=== PATIENT | female | born 1970 | race Caucasian/White ===

== ENCOUNTER 2018-05-25 14:52 | Emergency (ER) | payer SELFPAY ==
[2018-05-25 15:36] VITALS: BP 152/86
[2018-05-25] MEDS ORDERED: KETOROLAC TROMETHAMINE 60 MG/2 ML SDV IM ONE (16:52)
[2018-05-25] MEDS ORDERED: DICYCLOMINE HCL INJ 20 MG/2 ML AMPULE IM ONE (16:52)
--- NOTE | 2018-05-25 16:56 | ER Document Report ---
ED General - General Chief Complaint: Black/Tarry Stools Stated Complaint: BLACK TARRY STOOLS Time Seen by Provider: 05/25/18 16:52 Mode of Arrival: Ambulatory Information source: Patient Notes: Chief complaint: abdominal pain: History of complain:( obtained from----patient) 47 years old female presents today with nearly 2 month history of abdominal cramps with on and off slimy, tarry sometimes brownie watery stools sometimes the whole day leaking. Therefore present to the ED. She feels something sitting in the rectum but unable to pass. No fever chills nausea vomiting. Onset: As described above Duration: As above Severity: Mild to moderate Quality: Crampy Context: Poor bowel habit Exacerbating factor and relieving factors: None REVIEW OF SYSTEMS: CONSTITUTIONAL : Denies fever, chills, or sweats. Denies recent illness. EENT: Denies eye, ear, throat, or mouth pain or symptoms. Denies nasal or sinus congestion or discharge. Denies throat, tongue, or mouth swelling or difficulty swallowing. CARDIOVASCULAR: Denies chest pain. Denies palpitations or racing or irregular heart beat. Denies ankle edema. RESPIRATORY: Denies cough, cold, or chest congestion. Denies shortness of breath, difficulty breathing, or wheezing. GASTROINTESTINAL: Denies distention. Denies nausea, vomiting, or diarrhea. Denies blood in vomitus, stools, or per rectum. Denies black, tarry stools. Denies constipation. GENITOURINARY: Denies difficulty urinating, painful urination, burning, frequency, blood in urine, or discharge. FEMALE GENITOURINARY: Denies vaginal bleeding, heavy or abnormal periods, irregular periods. Denies vaginal discharge or odor. MUSCULOSKELETAL: Denies back or neck pain or stiffness. Denies joint pain or swelling. SKIN: Denies rash, lesions or sores. HEMATOLOGIC : Denies easy bruising or bleeding. LYMPHATIC: Denies swollen, enlarged glands. NEUROLOGICAL: Denies confusion or altered mental status. Denies passing out or loss of consciousness. Denies dizziness or lightheadedness. Denies headache. Denies weakness or paralysis or loss of use of either side. Denies problems with gait or speech. Denies sensory loss, numbness, or tingling. Denies seizures. PSYCHIATRIC: Denies anxiety or stress. Denies depression, suicidal ideation, or homicidal ideation. ALL OTHER SYSTEMS REVIEWED AND NEGATIVE. PHYSICAL EXAMINATION: GENERAL: Well-appearing, well-nourished and in no acute distress. HEAD: Atraumatic, normocephalic. EYES: Pupils equal round and reactive to light, extraocular movements intact, conjunctiva are normal. ENT: Nares patent, oropharynx clear without exudates. Moist mucous membranes. NECK: Normal range of motion, supple without lymphadenopathy LUNGS: Breath sounds clear to auscultation bilaterally and equal. No wheezes rales or rhonchi. HEART: Regular rate and rhythm without murmurs ABDOMEN: Soft, nontender, nondistended abdomen. No guarding, no rebound. No masses appreciated. Female : deferred Musculoskeletal: Normal range of motion, no pitting or edema. No cyanosis. NEUROLOGICAL: Cranial nerves grossly intact. Normal speech, normal gait. Normal sensory, motor exams PSYCH: Normal mood, normal affect. SKIN: Warm, Dry, normal turgor, no rashes or lesions noted. Dictation was performed using Drop[employer] recognition software - [facility] Notes: Dictated - Related Data Allergies/Adverse Reactions: No Known Allergies Allergy (Unverified 05/25/18 14:54) Past Medical History - Social History Smoking Status: Current Every Day Smoker Chew tobacco use (# tins/day): No Frequency of alcohol use: Rare Drug Abuse: None Family History: Reviewed & Not Pertinent Patient has suicidal ideation: No Patient has homicidal ideation: No Renal/ Medical History: Denies: Hx Peritoneal Dialysis Review of Systems - Review of Systems Notes: Dictated Physical Exam - Vital signs Vitals: Temp Pulse Resp BP Pulse Ox 98.2 F 97 20 152/86 H 100 05/25/18 15:14 05/25/18 15:14 05/25/18 15:14 05/25/18 15:14 05/25/18 15:14 - Notes Notes: Dictated Course - Re-evaluation Re-evalutation: 05/25/18 20:42 Patient fearing cost refused to have CAT scan of the abdomen done. Pros and cons was explained to her in detail that if there is any diverticulitis or diverticular abscess or tumors I1 not no without doing a scan. They understood they want to wait till July to get insurance. - Vital Signs Vital signs: Temp Pulse Resp BP Pulse Ox 98.2 F 97 20 152/86 H 100 05/25/18 15:14 05/25/18 15:14 05/25/18 15:14 05/25/18 15:14 05/25/18 15:14 - Laboratory Result Diagrams: 05/25/18 17:05 05/25/18 17:05 Laboratory results interpreted by me: 05/25/18 05/25/18 17:05 17:05 WBC 11.7 H Seg Neutrophils % 82.7 H Lymphocytes % 11.5 L Absolute Neutrophils 9.6 H Direct Bilirubin 0.5 H AST 47 H - Diagnostic Test Radiology reviewed: Image reviewed - KUB showed large amount of fecal material no air-fluid levels or distention of the bowel loop, Reports reviewed - Reported by radiologist as unremarkable Discharge - Discharge Clinical Impression: Chronic constipation Condition: Fair Disposition: HOME, SELF-CARE Instructions: Constipation ([facility]) Prescriptions: Lactulose [Cephulac Syrup 20 gm/30 ml Udcup] 20 gm PO BID #120 udc Referrals: ANGELITO HEARD MD [Primary Care Provider] - Follow up as needed
[2018-05-25 17:38] LABS: ABSOLUTE LYMPHOCYTES (AUTO) 1.3 10^3/uL (0.5-4.7); ABSOLUTE MONOCYTES (AUTO) 0.6 10^3/uL (0.1-1.4); ABSOLUTE NEUT (AUTO) 9.6 10^3/uL (1.7-8.2); BASOPHILS % (AUTO) 0.2 % (0-2); EOSINOPHILS % (AUTO) 0.2 % (0-6); HEMATOCRIT 39.5 % (36.0-47.0); HEMOGLOBIN 13.3 g/dL (12.0-15.5); LYMPHOCYTES % (AUTO) 11.5 % (13-45); MEAN CORPUSCULAR HEMOGLOBIN 30.7 pg (27.0-33.4); MEAN CORPUSCULAR HGB CONC 33.7 g/dL (32.0-36.0); MEAN CORPUSCULAR VOLUME 91 fl (80-97); MONOCYTES % (AUTO) 5.4 % (3-13); PLATELET COUNT 368 10^3/uL (150-450); RED BLOOD COUNT 4.33 10^6/uL (3.72-5.28); RED CELL DISTRIBUTION WIDTH 13.6 % (11.5-14.0); SEGMENTED NEUTROPHILS % (AUTO) 82.7 % (42-78); TOTAL CELLS COUNTED % (AUTO) 100 %; WHITE BLOOD COUNT 11.7 10^3/uL (4.0-10.5)
[2018-05-25 17:39] LABS: ALANINE AMINOTRANSFERASE 28 U/L (9-52); ALBUMIN 4.4 g/dL (3.5-5.0); ALKALINE PHOSPHATASE 88 U/L (38-126); ANION GAP 9 (5-19); ASPARTATE AMINO TRANSFERASE 47 U/L (14-36); BILIRUBIN,DIRECT 0.5 mg/dL (0.0-0.4); BILIRUBIN,TOTAL 0.6 mg/dL (0.2-1.3); BLOOD UREA NITROGEN 17 mg/dL (7-20); CARBON DIOXIDE 23 mmol/L (22-30); CHLORIDE 107 mmol/L (98-107); GLUCOSE 94 mg/dL (75-110); POTASSIUM 4.8 mmol/L (3.6-5.0); SODIUM 139.4 mmol/L (137-145); TOTAL PROTEIN 7.4 g/dL (6.3-8.2)
--- NOTE | 2018-05-25 17:45 | RADIOLOGY REPORT (SQ) ---
EXAM DESCRIPTION: KUB/ABDOMEN (SINGLE VIEW) COMPLETED DATE/TIME: 05/25/2018 5:35 pm REASON FOR STUDY: Abdominal pain COMPARISON: None. NUMBER OF VIEWS: One view. TECHNIQUE: Supine radiographic image of the abdomen acquired. LIMITATIONS: None. FINDINGS: BOWEL GAS PATTERN: Normal bowel gas pattern. No dilated loops. CALCIFICATIONS: No suspicious calcifications. SOFT TISSUES: No gross mass or suggestion of organomegaly. HARDWARE: None in the abdomen. BONES: No acute fracture. No worrisome bone lesions. OTHER: No other significant finding. IMPRESSION: NO RADIOGRAPHIC EVIDENCE FOR ACUTE ABDOMINAL DISEASE. TECHNICAL DOCUMENTATION: JOB ID: [id number] [employer]- All Rights Reserved Reading location - IP/workstation name: [email or web address]
== END 2018-05-25 20:43 | disposition home or self-care (01) ==
LOC: ER 14:52
DX: K59.00 Constipation, unspecified (principal); R19.5 Other fecal abnormalities; R10.9 Unspecified abdominal pain; F17.200 Nicotine dependence, unspecified, uncomplicated
CPT/HCPCS: 99285; 96372; 36415; 85025; 80053; 74018; J0500; J1885

== ENCOUNTER 2018-06-24 07:16 | Day surgery (SDC) | payer SELFPAY ==
[~2018-06-24 07:16] MED LIST: ACETAMINOPHEN 325 MG TABLET PO PRN; FENTANYL CITRATE INJ/PF 100 MCG/2 ML AMPUL ONE; MIDAZOLAM 2 MG/2 ML INJ ONE; PROPOFOL INJ 200 MG/20 ML VIAL IV ONE
[2018-06-24] MEDS ORDERED: BUPIVACAINE HCL 0.5 % INJ/PF 30 ML SDV ONE (07:22)
[2018-06-24] MEDS ORDERED: LIDOCAINE 1% INJ-PF (10 MG/ML) 30 ML SDV ONE (07:22)
[2018-06-24] MEDS ORDERED: CEFAZOLIN 2 GM/D5W RTU 2 GM/50 ML RTUPB IV ONE (07:25)
[2018-06-24 08:15] LABS: HEMATOCRIT 40.7 % (36.0-47.0); HEMOGLOBIN 13.9 g/dL (12.0-15.5); MEAN CORPUSCULAR HEMOGLOBIN 30.7 pg (27.0-33.4); MEAN CORPUSCULAR HGB CONC 34.2 g/dL (32.0-36.0); MEAN CORPUSCULAR VOLUME 90 fl (80-97); PLATELET COUNT 362 10^3/uL (150-450); RED BLOOD COUNT 4.54 10^6/uL (3.72-5.28); RED CELL DISTRIBUTION WIDTH 13.5 % (11.5-14.0); WHITE BLOOD COUNT 6.6 10^3/uL (4.0-10.5)
[2018-06-24] MEDS: CEFAZOLIN 2 GM/D5W RTU 2 GM/50 ML RTUPB IV PRN ×2 (08:38→08:55)
[2018-06-24] MEDS ORDERED: DIPHENHYDRAMINE HCL 50 MG/ML VIAL IV PRN (08:53)
[2018-06-24] MEDS ORDERED: MEPERIDINE HCL/PF INJ 25 MG/1 ML DISP.SYRIN IV PRN (08:53)
[2018-06-24] MEDS ORDERED: MORPHINE SULFATE 10 MG/ML INJ IV PRN (08:53)
[2018-06-24] MEDS ORDERED: PROMETHAZINE HCL INJ 25 MG/1 ML VIAL IV PRN ×2 (08:53)
[2018-06-24] MEDS ORDERED: OXYCODONE-ACETAMINOPHEN 5-325 MG TABLET PO PRN ×2 (08:53)
[2018-06-24] MEDS ORDERED: FENTANYL CITRATE INJ/PF 100 MCG/2 ML AMPUL IV PRN ×3 (08:53)
--- NOTE | 2018-06-24 09:44 | Discharge Summary ---
Discharge Summary (SDC) - Discharge Final Diagnosis: Anal cancer Date of Surgery: 06/24/18 Discharge Date: 06/24/18 Condition: Stable Treatment or Instructions: Discharge home. Diet as tolerated. Activity: Nonstrenuous. Okay to use Mediport. Follow-up with me in 2 weeks. Referrals: STACEY MINER NP [Primary Care Provider] - Discharge Diet: As Tolerated Respiratory Treatments at Home: Deep Breathing/Coughing, Incentive Spirometer Discharge Activity: Activity As Tolerated, Balance Activity w/Rest Home Care Assistance: None Needed Report the Following to Your Physician Immediately: Shortness of Breath, Nausea , Vomiting, Increase in Pain, Yellow Skin, Fever over 101 Degrees, Unusual Bleeding, Redness
--- NOTE | 2018-06-24 09:50 | Operative Report ---
Nonrecallable Operative Report DATE OF SURGERY: 06/24/18 PREOPERATIVE DIAGNOSIS: Anal cancer POSTOPERATIVE DIAGNOSIS: Anal cancer OPERATION: 1. Ultrasound-guided central venous puncture. 2. Left internal jugular vein Mediport placement. SURGEON: LARA DAVID ANESTHESIA: LMAC TISSUE REMOVED OR ALTERED: None COMPLICATIONS: None apparent ESTIMATED BLOOD LOSS: Minimal PROCEDURE: Drains/implants: Mediport to the left internal jugular vein. Procedure in detail: After informed consent was obtained, the patient was brought into the operating room and laid in the Trendelenburg position. The area of the neck and chest were prepped and draped in a normal sterile fashion. An ultrasound was used to identify the left internal jugular vein. It was compressible with normal flow. Under direct ultrasonic guidance, the left internal jugular vein was accessed using the supplied needle and syringe. Dark venous, nonpulsatile blood was returned in the syringe. The wire was inserted into the vein easily. The wire was confirmed to be within the lumen of the vein using fluoroscopy as well as ultrasonography. A separate incision was created in the left chest for the Mediport hub. The catheter was tunneled from the hub site to the needle insertion site. The dilator and breakaway sheath were inserted over the wire, under direct fluoroscopic guidance. The wire and dilator were removed, leaving the sheath within the SVC. Once this was completed, the catheter was inserted into the breakaway sheath. The sheath was cracked and pulled away, leaving the catheter within the SVC. The catheter was pulled back to an appropriate level in the SVC. It was trimmed to length. It was attached to the Mediport hub. The hub was buried in the left chest pocket and sutured to the chest wall using 3-0 Vicryl suture. The subcutaneous tissue was then closed using 3-0 Vicryl suture in simple running fashion. The overlying skin was closed using 4-0 Vicryl Rapide suture in subcuticular fashion. The hub was then accessed with the supplied Glaser needle. The port aspirated and flushed easily. A dressing was then placed, and the procedure was concluded. All sponge, instrument, and needle counts were correct x2. Condition: Stable.
--- NOTE | 2018-06-24 10:39 | RADIOLOGY REPORT (SQ) ---
EXAM DESCRIPTION: CHEST SINGLE VIEW COMPLETED DATE/TIME: 06/24/2018 10:19 am REASON FOR STUDY: Port a cath COMPARISON: None. EXAM PARAMETERS: NUMBER OF VIEWS: One view. TECHNIQUE: Single frontal radiographic view of the chest acquired. RADIATION DOSE: NA LIMITATIONS: None. FINDINGS: LUNGS AND PLEURA: No opacities, masses or pneumothorax. No pleural effusion. MEDIASTINUM AND HILAR STRUCTURES: No masses. Contour normal. HEART AND VASCULAR STRUCTURES: Heart normal in size. Normal vasculature. BONES: No acute findings. HARDWARE: None in the chest. OTHER: Left-sided port tip overlying SVC. IMPRESSION: Satisfactory left port position. No pneumothorax. TECHNICAL DOCUMENTATION: JOB ID: [id number] [employer]- All Rights Reserved Reading location - IP/workstation name: [email or web address]
[2018-06-24 14:32] VITALS: BP 161/96
--- NOTE | 2018-06-24 15:29 | RADIOLOGY REPORT (SQ) ---
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 FLUOROSCOPY TIME: 0.4 minutes 3 images saved to PACS. TECHNIQUE: Intra-operative images acquired during surgical procedure to evaluate progress. NUMBER OF IMAGES: 3 LIMITATIONS: None. FINDINGS: Selected images from left-sided port placement. Tip overlies SVC. IMPRESSION: IMAGE(S) OBTAINED DURING PROCEDURE. COMMENT: Quality ID [id number]: Final reports for procedures using fluoroscopy that document radiation exp osure indices, or exposure time and number of fluorographic images (if radiation exposure indices are not available) Please consult full operative report of the attending physician for description of the procedure. TECHNICAL DOCUMENTATION: JOB ID: [id number] [employer]- All Rights Reserved Reading location - IP/workstation name: [email or web address]
== END 2018-06-24 11:28 | disposition home or self-care (01) ==
LOC: OROUT 07:16
PROVIDERS: ATTEND Surgery
DX: C21.1 Malignant neoplasm of anal canal (principal); F41.9 Anxiety disorder, unspecified; I10 Essential (primary) hypertension; F17.210 Nicotine dependence, cigarettes, uncomplicated; Z79.899 Other long term (current) drug therapy
CPT/HCPCS: 36561; 36415; 85027; 81025; 71045; 77001; C1788; J2250; J3490 ×2; J3010; J2704; J0690; J1642; 532

== ENCOUNTER → 2018-06-25 | Outpatient (CLI) | payer SELFPAY ==
--- NOTE | 2018-06-25 13:36 | RADIOLOGY REPORT (SQ) ---
EXAM DESCRIPTION: NM MUGA REST COMPLETED DATE/TIME: 06/25/2018 1:00 pm REASON FOR STUDY: ENCOUNTER FOR SCREENING FOR CARDIOVASCULAR DISORDERS (Z13.6) C21.1 MALIGNANT NEOP LASM OF ANAL CANAL Z08 ENCNTR FOR FOLLOW-UP EXAM AFTER TRTMT FOR MALIGNANT NEOP Z13.6 ENCOUNTER FOR SCREENING FOR CARDIOVASCULAR DISORDERS COMPARISON: None. RADIONUCLIDE AND DOSE: 21.7 mCi technetium 99m labeled red blood cells The route of agent administration: Intravenous TECHNIQUE: Following administration of the radionuclide, gated images of the heart are obtained in t hree projections. Left ventricular functional analysis performed. LIMITATIONS: None. FINDINGS: LEFT VENTRICULAR FUNCTION: EJECTION FRACTION: 77%. END-DIASTOLIC VOLUME: 96 mL. END-SYSTOLIC VOLUME: 14 mL. WALL MOTION: No focal wall motion abnormalities. OTHER: No other significant finding. IMPRESSION: NORMAL CARDIAC MUGA STUDY. NORMAL LEFT VENTRICULAR FUNCTION WITH VALUES ABOVE. TECHNICAL DOCUMENTATION: JOB ID: [id number] [employer]- All Rights Reserved Reading location - IP/workstation name: [facility]
== END ==
LOC: RAD 10:40
PROVIDERS: ATTEND Internal Medicine
DX: Z08 Encounter for follow-up examination after completed treatment for malignant neoplasm (principal); C21.1 Malignant neoplasm of anal canal; Z13.6 Encounter for screening for cardiovascular disorders
CPT/HCPCS: 78472; A9560; Q9969

== ENCOUNTER → 2018-06-27 | Outpatient (CLI) | payer SELFPAY ==
--- NOTE | 2018-06-28 09:18 | RADIOLOGY REPORT (SQ) ---
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 RADIONUCLIDE AND DOSE: 10.81 mCi F18 FDG The route of agent administration: Intravenous FASTING BLOOD SUGAR: 90 mg/dl CONTRAST TYPE AND DOSE: No CT contrast given. TECHNIQUE: Blood glucose level was verified. Above dose of FDG was injected intravenously. 2-D seg mented attenuation correction images were obtained from the base of the skull to the midthighs. Nonc ontrast CT images were obtained for attenuation correction and fusion with emission images. CT image s were performed without oral or intravenous contrast and are not sensitive for parenchymal lesions. A series of overlapping emission PET images were obtained. Images reviewed and manipulated at [facility] work station by the radiologist. Images stored on PACS. LIMITATIONS: None. FINDINGS: HEAD AND NECK: No areas of abnormal metabolic activity in the soft tissues of the head and neck. CHEST: Left paratracheal brown fat uptake. No significant areas of abnormal metabolic activity in th e chest. ABDOMEN AND PELVIS: Increased uptake 8.0 SUV associated with known anal mass. No other significant u ptake. PROXIMAL LOWER EXTREMITIES: No areas of abnormal metabolic activity in the soft tissues of the lower extremities. BONES: No abnormal metabolic activity in the visualized skeleton. ADDITIONAL CT FINDINGS: Left-sided port tip in the SVC. OTHER: No other significant findings. IMPRESSION: No evidence of metastatic disease. TECHNICAL DOCUMENTATION: JOB ID: [id number] [employer] All Rights Reserved Reading location - IP/workstation name: [email or web address]
== END ==
LOC: RAD 16:04
PROVIDERS: ATTEND Internal Medicine
DX: C21.1 Malignant neoplasm of anal canal (principal)
CPT/HCPCS: 78815; A9552

== ENCOUNTER → 2018-06-29 | Outpatient (CLI) | payer SELFPAY | LOC: OD 12:53 | PROVIDERS: ATTEND Internal Medicine | DX: C21.1 Malignant neoplasm of anal canal (principal) | CPT/HCPCS: 36415; 86701 ==

== ENCOUNTER 2018-07-01 12:47 | Outpatient (CLI) | payer SELFPAY ==
[~2018-07-01 12:47] MED LIST changes: -ACETAMINOPHEN 325 MG TABLET PO PRN; +CYANOCOBALAMIN (VITAMIN B-12) INJ 1000 MCG/1 ML VIAL IM PRN; -FENTANYL CITRATE INJ/PF 100 MCG/2 ML AMPUL ONE; +FERRIC CARBOXYMALTOSE 750 MG in NORMAL SALINE 250 ML IV PRN; -MIDAZOLAM 2 MG/2 ML INJ ONE; +NORMAL SALINE 250 ML IV PRN; -PROPOFOL INJ 200 MG/20 ML VIAL IV ONE
[2018-07-01 13:20] VITALS: BP 136/86
== END 2018-07-01 14:16 | disposition home or self-care (01) ==
LOC: II 12:47 → 5TH 13:29 → II 14:16
PROVIDERS: ATTEND Internal Medicine
PROC: 3E043GC Introduction of Other Therapeutic Substance into Central Vein, Percutaneous Approach (ICD-10-PCS; principal; 2018-07-01)
PROC: 3E023GC Introduction of Other Therapeutic Substance into Muscle, Percutaneous Approach (ICD-10-PCS; 2018-07-01)
DX: D50.8 Other iron deficiency anemias (principal); K90.9 Intestinal malabsorption, unspecified; E53.8 Deficiency of other specified B group vitamins
CPT/HCPCS: 96367; 96372; J3420; J7050; J1439; 96365

== ENCOUNTER 2018-07-06 07:46 | Outpatient (CLI) | payer SELFPAY ==
[~2018-07-06 07:46] MED LIST changes: +CISPLATIN 86 MG in NORMAL SALINE 500 ML IV PRN; +CONTAINER EMPTY IV PRN; -CYANOCOBALAMIN (VITAMIN B-12) INJ 1000 MCG/1 ML VIAL IM PRN; -FERRIC CARBOXYMALTOSE 750 MG in NORMAL SALINE 250 ML IV PRN; +FLUOROURACIL IV PRN; +FOSAPREPITANT DIMEGLUMINE 150 MG in NORMAL SALINE 150 ML IV PRN; +FUROSEMIDE INJ/PF 20 MG/2 ML SDV IV PRN; +NORMAL SALINE 1000 ML 1,000 ML IV PRN; -NORMAL SALINE 250 ML IV PRN; +ONDANSETRON HCL/PF 16 MG, DEXAMETHASONE SOD PHOSPHATE 10 MG in NORMAL SALINE 50 ML IV PRN
[2018-07-06] MEDS ORDERED: EPINEPHRINE INJ 1 MG/10 ML DISP.SYRIN ONE (08:41)
[2018-07-06] MEDS ORDERED: DIPHENHYDRAMINE HCL 50 MG/ML VIAL ONE (08:41)
[2018-07-06 09:21] VITALS: BP 127/79
== END 2018-07-06 13:30 | disposition home or self-care (01) ==
LOC: 5TH 07:46 → II 07:46
PROVIDERS: ATTEND Internal Medicine
PROC: 3E04305 Introduction of Other Antineoplastic into Central Vein, Percutaneous Approach (ICD-10-PCS; principal; 2018-07-06)
PROC: 3E0433Z Introduction of Anti-inflammatory into Central Vein, Percutaneous Approach (ICD-10-PCS; 2018-07-06)
PROC: 3E043GC Introduction of Other Therapeutic Substance into Central Vein, Percutaneous Approach (ICD-10-PCS; 2018-07-06)
PROC: 3E02340 Introduction of Influenza Vaccine into Muscle, Percutaneous Approach (ICD-10-PCS; 2018-07-06)
DX: Z51.11 Encounter for antineoplastic chemotherapy (principal); C21.1 Malignant neoplasm of anal canal; Z23 Encounter for immunization
CPT/HCPCS: 90686; 96411; 96413; 96415; 96367; 96375; 96361; J9060; J3490; J9190; J1940; J2405; J7040; J1100; J1453; 90471; 96360; 96372; 96374; 96417; G0008; J0171; J1200

== ENCOUNTER 2018-07-09 10:51 | Outpatient (CLI) | payer SELFPAY ==
[~2018-07-09 10:51] MED LIST changes: -CISPLATIN 86 MG in NORMAL SALINE 500 ML IV PRN; -CONTAINER EMPTY IV PRN; +FERRIC CARBOXYMALTOSE 750 MG in NORMAL SALINE 250 ML IV PRN; -FLUOROURACIL IV PRN; -FOSAPREPITANT DIMEGLUMINE 150 MG in NORMAL SALINE 150 ML IV PRN; -FUROSEMIDE INJ/PF 20 MG/2 ML SDV IV PRN; -NORMAL SALINE 1000 ML 1,000 ML IV PRN; +NORMAL SALINE 250 ML IV PRN; -ONDANSETRON HCL/PF 16 MG, DEXAMETHASONE SOD PHOSPHATE 10 MG in NORMAL SALINE 50 ML IV PRN
[2018-07-09 14:12] VITALS: BP 154/77
== END 2018-07-09 13:00 | disposition home or self-care (01) ==
LOC: II 10:51 → 5TH 10:52 → II 13:00
PROVIDERS: ATTEND Internal Medicine
PROC: 3E043GC Introduction of Other Therapeutic Substance into Central Vein, Percutaneous Approach (ICD-10-PCS; principal; 2018-07-09)
DX: D50.8 Other iron deficiency anemias (principal); K90.9 Intestinal malabsorption, unspecified; E53.8 Deficiency of other specified B group vitamins
CPT/HCPCS: J7050; J1439; 96365; 96366

== ENCOUNTER 2018-07-20 07:46 | Outpatient (CLI) | payer SELFPAY ==
[~2018-07-20 07:46] MED LIST changes: -FERRIC CARBOXYMALTOSE 750 MG in NORMAL SALINE 250 ML IV PRN; +FERUMOXYTOL (NON-ESRD) 510 MG/NS 100 ML IV PRN
[2018-07-20 08:40] VITALS: BP 126/73
[2018-07-20 08:53] LABS: ABSOLUTE LYMPHOCYTES (AUTO) 1.3 10^3/uL (0.5-4.7); ABSOLUTE MONOCYTES (AUTO) 0.5 10^3/uL (0.1-1.4); ABSOLUTE NEUT (AUTO) 4.6 10^3/uL (1.7-8.2); BASOPHILS % (AUTO) 0.5 % (0-2); EOSINOPHILS % (AUTO) 0.3 % (0-6); HEMOGLOBIN 13.2 g/dL (12.0-15.5); LYMPHOCYTES % (AUTO) 19.7 % (13-45); MEAN CORPUSCULAR HEMOGLOBIN 31.8 pg (27.0-33.4); MEAN CORPUSCULAR HGB CONC 34.6 g/dL (32.0-36.0); MEAN CORPUSCULAR VOLUME 92 fl (80-97); MONOCYTES % (AUTO) 7.5 % (3-13); PLATELET COUNT 297 10^3/uL (150-450); RED BLOOD COUNT 4.14 10^6/uL (3.72-5.28); TOTAL CELLS COUNTED % (AUTO) 100 %; WHITE BLOOD COUNT 6.4 10^3/uL (4.0-10.5)
== END 2018-07-20 09:02 | disposition home or self-care (01) ==
LOC: II 07:46 → 5TH 08:20 → II 09:02
PROVIDERS: ATTEND Internal Medicine
PROC: 3E033GC Introduction of Other Therapeutic Substance into Peripheral Vein, Percutaneous Approach (ICD-10-PCS; principal; 2018-07-20)
DX: D50.8 Other iron deficiency anemias (principal); K90.9 Intestinal malabsorption, unspecified
CPT/HCPCS: 36415; 85025; 96365; 96374; Q0138

== ENCOUNTER 2018-07-27 08:44 | Outpatient (CLI) | payer SELFPAY ==
[~2018-07-27 08:44] MED LIST changes: +CISPLATIN 85 MG in NORMAL SALINE 500 ML IV PRN; +CISPLATIN 86 MG in NORMAL SALINE 500 ML IV PRN; +CONTAINER EMPTY IV PRN; +FLUOROURACIL IV PRN; +FOSAPREPITANT DIMEGLUMINE 150 MG in NORMAL SALINE 150 ML IV PRN; +FUROSEMIDE INJ/PF 20 MG/2 ML SDV IV PRN; +NORMAL SALINE 1000 ML 1,000 ML IV PRN; +ONDANSETRON HCL/PF 16 MG, DEXAMETHASONE SOD PHOSPHATE 10 MG in NORMAL SALINE 50 ML IV PRN
[2018-07-27 10:28] VITALS: BP 128/76
== END 2018-07-27 14:15 | disposition home or self-care (01) ==
LOC: II 08:44 → 5TH 08:48 → II 14:15
PROVIDERS: ATTEND Internal Medicine
PROC: 3E04305 Introduction of Other Antineoplastic into Central Vein, Percutaneous Approach (ICD-10-PCS; principal; 2018-07-27)
PROC: 3E043GC Introduction of Other Therapeutic Substance into Central Vein, Percutaneous Approach (ICD-10-PCS; 2018-07-27)
DX: Z51.11 Encounter for antineoplastic chemotherapy (principal); C21.1 Malignant neoplasm of anal canal; D50.8 Other iron deficiency anemias; K90.9 Intestinal malabsorption, unspecified
CPT/HCPCS: 96413; 96415; 96416; 96367; 96375; 96360; 96361; Q0138; J9060; J3490; J9190; J1940; J2405; J7040; J1100; J1453

== ENCOUNTER 2018-07-30 11:19 | Outpatient (CLI) | payer SELFPAY | END 2018-07-30 11:58 | disposition home or self-care (01) | LOC: II 11:19 → 5TH 11:19 → II 11:58 | PROVIDERS: ATTEND Internal Medicine | DX: Z51.11 Encounter for antineoplastic chemotherapy (principal); C21.1 Malignant neoplasm of anal canal ==

== ENCOUNTER → 2018-08-06 | Outpatient (CLI) | payer SELFPAY ==
[2018-08-06 14:41] LABS: ABSOLUTE LYMPHOCYTES (AUTO) 1.7 10^3/uL (0.5-4.7); ABSOLUTE MONOCYTES (AUTO) 0.5 10^3/uL (0.1-1.4); ABSOLUTE NEUT (AUTO) 6.1 10^3/uL (1.7-8.2); BASOPHILS % (AUTO) 0.2 % (0-2); EOSINOPHILS % (AUTO) 0.1 % (0-6); HEMATOCRIT 36.7 % (36.0-47.0); HEMOGLOBIN 12.9 g/dL (12.0-15.5); LYMPHOCYTES % (AUTO) 20.2 % (13-45); MEAN CORPUSCULAR HEMOGLOBIN 32.4 pg (27.0-33.4); MEAN CORPUSCULAR HGB CONC 35.2 g/dL (32.0-36.0); MEAN CORPUSCULAR VOLUME 92 fl (80-97); MONOCYTES % (AUTO) 5.6 % (3-13); PLATELET COUNT 355 10^3/uL (150-450); RED BLOOD COUNT 3.99 10^6/uL (3.72-5.28); RED CELL DISTRIBUTION WIDTH 14.1 % (11.5-14.0); SEGMENTED NEUTROPHILS % (AUTO) 73.9 % (42-78); TOTAL CELLS COUNTED % (AUTO) 100 %; WHITE BLOOD COUNT 8.2 10^3/uL (4.0-10.5)
[2018-08-06 14:52] LABS: BLOOD UREA NITROGEN 5 mg/dL (7-20)
== END ==
LOC: OD 13:53
PROVIDERS: ATTEND Radiology Radiation Oncology
DX: C20 Malignant neoplasm of rectum (principal)
CPT/HCPCS: 36415; 82565; 84520; 84702; 85025

== ENCOUNTER → 2018-08-06 | Outpatient (CLI) | payer SELFPAY ==
--- NOTE | 2018-08-06 14:47 | RADIOLOGY REPORT (SQ) ---
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 Images reviewed with lung, soft tissue and bone windows. Reconstructed coronal a nd sagittal MPR images reviewed. All images stored on PACS. CT scan of the abdomen and pelvis performed with intravenous and with oral contrastusing helical scan shanti technique with dynamic intravenous contrast injection. Images reviewed with lung, soft tissue a nd bone windows. Reconstructed coronal and sagittal MPR images reviewed. Delayed images for evaluat ion of the urinary system also acquired and evaluated. All images stored on PACS. All CT scanners at this facility use dose modulation, iterative reconstruction, and/or weight based d osing when appropriate to reduce radiation dose to as low as reasonably achievable (ALARA). [facility]: Dose Right [facility]: CareDose [facility]: Dose Right [facility]: Teradose 4D [facility]: [employer] RADIATION DOSE: CT Rad equipment meets quality standard of care and radiation dose reduction techniq ues were employed. CTDIvol: 4.7 - 5.1 mGy. DLP: 726 mGy-cm. . LIMITATIONS: None. FINDINGS: CHEST: LUNGS AND PLEURA: No opacities, nodules, masses. No pneumothorax. No effusions. HILAR AND MEDIASTINAL STRUCTURES: No identified masses or abnormal nodes. HEART AND VASCULAR STRUCTURES: No aneurysm or dissection. No central pulmonary emboli. No pericardi al effusion. HARDWARE: Left permanent central line tip superior vena cava THYROID AND OTHER SOFT TISSUES: No masses. No adenopathy. BONES: No significant finding. OTHER: No other significant finding. ABDOMEN AND PELVIS: LIVER: Normal size. No masses. No dilated ducts. 1 cm benign cyst sub- diaphragmatic surface left l obe liver, 5 mm cyst inferior right lobe liver SPLEEN: Normal size. No focal lesions. PANCREAS: No masses. No significant calcifications. No adjacent inflammation or peripancreatic fluid collections. Pancreatic duct not dilated. GALLBLADDER: No identified stones by CT criteria. No inflammatory changes to suggest cholecystitis. ADRENAL GLANDS: No significant masses or asymmetry. RIGHT KIDNEY AND URETER: No solid masses. No significant calcification. No hydronephrosis or hydroure ter. LEFT KIDNEY AND URETER: No solid masses. No significant calcification. No hydronephrosis or hydrouret er. AORTA AND VESSELS: No aneurysm. No dissection. Renal arteries, SMA, celiac without stenosis. RETROPERITONEUM: No retroperitoneal adenopathy, hemorrhage or masses. BOWEL AND PERITONEAL CAVITY: Patient drank oral contrast. No CT evidence of bowel obstruction few co lonic diverticuli without CT signs of acute diverticulitis. APPENDIX: Normal. ABDOMINAL WALL: No masses. No hernias. 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 Immediately do rsal to the anus and rectum, there is extraluminal air in the pelvic soft tissues with surrounding in flammatory change, extending into the ischiorectal fossa fat and presacral fat. This area of involve ment measures about 5 cm AP by 2 cm transverse by 5 cm craniocaudad. These changes are best shown on axial images 82-89, coronal images 62-69, and sagittal images 36 through 46. Suspect perforation of the anal malignancy and infectious/inflammatory phlegmon in the fat dorsal to the anus. Rectum, sigmoid, uterus, ovaries unremarkable. No pelvic adenopathy. BONES: No significant or acute findings. OTHER: No other significant finding. IMPRESSION: No CT evidence of metastatic disease to the chest abdomen or pelvis Abnormal extraluminal air bubbles with phlegmon/inflammation in the fat planes just dorsal to the cam s and distal rectum. Findings are worrisome for perforation of the anal cancer with adjacent infecti on/inflammation. TECHNICAL DOCUMENTATION: JOB ID: [id number] Quality ID # [id number]: Final reports with documentation of one or more dose reduction techniques (e.g., Au tomated exposure control, adjustment of the mA and/or kV according to patient size, use of iterative reconstruction technique) 2010 [employer]- All Rights Reserved Reading location - IP/workstation name: [email or web address]
== END ==
LOC: RAD 12:49
PROVIDERS: ATTEND Internal Medicine
DX: C21.1 Malignant neoplasm of anal canal (principal)
CPT/HCPCS: 71260; 74177

== ENCOUNTER 2018-08-24 08:35 | Outpatient (CLI) | payer SELFPAY ==
[~2018-08-24 08:35] MED LIST changes: -CISPLATIN 85 MG in NORMAL SALINE 500 ML IV PRN; -CISPLATIN 86 MG in NORMAL SALINE 500 ML IV PRN; -FERUMOXYTOL (NON-ESRD) 510 MG/NS 100 ML IV PRN; -FOSAPREPITANT DIMEGLUMINE 150 MG in NORMAL SALINE 150 ML IV PRN; -FUROSEMIDE INJ/PF 20 MG/2 ML SDV IV PRN; +MITOMYCIN IV PRN; -NORMAL SALINE 1000 ML 1,000 ML IV PRN; +NORMAL SALINE IV PRN
[2018-08-24 10:30] VITALS: BP 111/66
== END 2018-08-24 10:38 | disposition home or self-care (01) ==
LOC: II 08:35 → 5TH 08:38 → II 10:38
PROVIDERS: ATTEND Internal Medicine
PROC: 3E04305 Introduction of Other Antineoplastic into Central Vein, Percutaneous Approach (ICD-10-PCS; principal; 2018-08-24)
PROC: 3E043GC Introduction of Other Therapeutic Substance into Central Vein, Percutaneous Approach (ICD-10-PCS; 2018-08-24)
DX: Z51.11 Encounter for antineoplastic chemotherapy (principal); C21.1 Malignant neoplasm of anal canal
CPT/HCPCS: 96413; 96415; 96367; 96374; 96360; 96417; A4222; J3490; J9190; J9280; J2405; J1100; 96416

== ENCOUNTER 2018-09-01 10:11 | Outpatient (CLI) | payer SELFPAY ==
[2018-09-01] MEDS ORDERED: CONTAINER EMPTY IV PRN ×3 (10:46→10:53)
[2018-09-01] MEDS ORDERED: FLUOROURACIL IV PRN ×3 (10:46→10:53)
[2018-09-01 11:24] VITALS: BP 123/78
[2018-09-01 13:25] LABS: ALANINE AMINOTRANSFERASE 13 U/L (9-52); ALBUMIN 3.5 g/dL (3.5-5.0); ALKALINE PHOSPHATASE 85 U/L (38-126); ANION GAP 5 (5-19); ASPARTATE AMINO TRANSFERASE 28 U/L (14-36); BILIRUBIN,DIRECT 0.2 mg/dL (0.0-0.4); BILIRUBIN,TOTAL 0.3 mg/dL (0.2-1.3); BLOOD UREA NITROGEN 9 mg/dL (7-20); CALCIUM 9.3 mg/dL (8.4-10.2); CARBON DIOXIDE 24 mmol/L (22-30); CHLORIDE 110 mmol/L (98-107); GLUCOSE 86 mg/dL (75-110); SODIUM 139.1 mmol/L (137-145); TOTAL PROTEIN 6.1 g/dL (6.3-8.2)
== END 2018-09-01 13:51 | disposition home or self-care (01) ==
LOC: II 10:11 → 5TH 10:16 → II 13:51
PROVIDERS: ATTEND Internal Medicine
DX: Z51.11 Encounter for antineoplastic chemotherapy (principal); C21.1 Malignant neoplasm of anal canal
CPT/HCPCS: 36415; 80053; 96416; A4222; J3490; J9190

== ENCOUNTER 2018-09-08 09:11 | Outpatient (CLI) | payer BC ==
[~2018-09-08 09:11] MED LIST changes: -MITOMYCIN IV PRN; -NORMAL SALINE 250 ML IV PRN; -NORMAL SALINE IV PRN; -ONDANSETRON HCL/PF 16 MG, DEXAMETHASONE SOD PHOSPHATE 10 MG in NORMAL SALINE 50 ML IV PRN
[2018-09-08 09:40] VITALS: BP 126/74
== END 2018-09-08 11:38 | disposition home or self-care (01) ==
LOC: II 09:11 → 5TH 09:12 → II 11:38
PROVIDERS: ATTEND Internal Medicine
DX: Z51.11 Encounter for antineoplastic chemotherapy (principal); C21.1 Malignant neoplasm of anal canal
CPT/HCPCS: 96416; J3490; J9190

== ENCOUNTER 2018-09-14 11:50 | Outpatient (CLI) | payer BC ==
[2018-09-14] MEDS ORDERED: CONTAINER EMPTY IV PRN (12:21)
[2018-09-14] MEDS ORDERED: FLUOROURACIL IV PRN (12:21)
[2018-09-14 12:32] VITALS: BP 112/68
== END 2018-09-14 14:30 | disposition home or self-care (01) ==
LOC: II 11:50 → 5TH 12:26 → II 14:30
PROVIDERS: ATTEND Internal Medicine
DX: Z51.11 Encounter for antineoplastic chemotherapy (principal); C21.1 Malignant neoplasm of anal canal
CPT/HCPCS: 96416; A4222; J3490; J9190

== ENCOUNTER 2018-09-22 08:01 | Outpatient (CLI) | payer BC ==
[2018-09-22 08:36] VITALS: BP 129/75
== END 2018-09-22 10:10 | disposition home or self-care (01) ==
LOC: II 08:01 → 5TH 08:07 → II 10:10
PROVIDERS: ATTEND Internal Medicine
DX: Z51.11 Encounter for antineoplastic chemotherapy (principal); C21.1 Malignant neoplasm of anal canal
CPT/HCPCS: 96416; A4222; J3490; J9190

== ENCOUNTER 2018-09-28 08:37 | Outpatient (CLI) | payer BC ==
[2018-09-28 09:37] VITALS: BP 123/73
== END 2018-09-28 12:03 | disposition home or self-care (01) ==
LOC: II 08:37 → 5TH 08:45 → II 12:03
PROVIDERS: ATTEND Internal Medicine
DX: Z51.11 Encounter for antineoplastic chemotherapy (principal); C21.1 Malignant neoplasm of anal canal
CPT/HCPCS: 96416; J3490; J9190

== ENCOUNTER 2018-10-05 08:35 | Outpatient (CLI) | payer BC ==
[2018-10-05 09:27] VITALS: BP 125/76
== END 2018-10-05 11:10 | disposition home or self-care (01) ==
LOC: II 08:35 → 5TH 08:35 → II 11:10
PROVIDERS: ATTEND Internal Medicine
DX: Z51.11 Encounter for antineoplastic chemotherapy (principal); C21.1 Malignant neoplasm of anal canal
CPT/HCPCS: 96416; A4222; J3490; J9190

== ENCOUNTER → 2019-04-18 | Outpatient (CLI) | payer BC ==
--- NOTE | 2019-04-18 11:13 | RADIOLOGY REPORT (SQ) ---
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 TECHNIQUE: CT scan of the chest performed using helical scanning technique with dynamic intravenous contrast injection. Images reviewed with lung, soft tissue and bone windows. Reconstructed coronal and sagittal MPR and MIP images reviewed. All images stored on PACS. All CT scanners at this facility use dose modulation, iterative reconstruction, and/or weight based d osing when appropriate to reduce radiation dose to as low as reasonably achievable (ALARA). [facility]: Dose Right [facility]: CareDose [facility]: Dose Right [facility]: Teradose 4D [facility]: [place] CONTRAST TYPE AND DOSE: 73 mL Omnipaque 350- low osmolar. RENAL FUNCTION: Creatinine 0.6 RADIATION DOSE: CT Rad equipment meets quality standard of care and radiation dose reduction techniq ues were employed. CTDIvol: 4.5 - 5.1 mGy. DLP: 698 mGy-cm. . LIMITATIONS: None. FINDINGS: LUNGS AND PLEURA: No opacities, nodules, masses. No pneumothorax. No effusions. HILAR AND MEDIASTINAL STRUCTURES: No identified masses or abnormal nodes. HEART AND VASCULAR STRUCTURES: No aneurysm or dissection. No central pulmonary emboli. No pericardi al effusion. HARDWARE: Injection port UPPER ABDOMEN: See separate report of the CT of the abdomen. THYROID AND OTHER SOFT TISSUES: No masses. No adenopathy. BONES: No significant finding. OTHER: No other significant finding. IMPRESSION: There is no evidence of thoracic metastases. No acute findings in the chest. TECHNICAL DOCUMENTATION: JOB ID: [id number] Quality ID # [id number]: Final reports with documentation of one or more dose reduction techniques (e.g., Au tomated exposure control, adjustment of the mA and/or kV according to patient size, use of iterative reconstruction technique) 2010 [employer]- All Rights Reserved Reading location - IP/workstation name: [email or web address]
--- NOTE | 2019-04-18 11:50 | RADIOLOGY REPORT (SQ) ---
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 Oral contrast. Images reviewed with lung, soft tissue, and bone win dows. Reconstructed coronal and sagittal MPR images reviewed. Delayed images for evaluation of the ur inary system also acquired. All images stored on PACS. All CT scanners at this facility use dose modulation, iterative reconstruction, and/or weight based d osing when appropriate to reduce radiation dose to as low as reasonably achievable (ALARA). [facility]: Dose Right [facility]: CareDose [facility]: Dose Right [facility]: Teradose 4D [facility]: [employer] CONTRAST TYPE AND DOSE: contrast/concentration: Isovue 350.00 mg/ml; Total Contrast Delivered: 73.0 ml; Total Saline Delivered: 66.0 ml RENAL FUNCTION: Creatinine 0.6 RADIATION DOSE: . LIMITATIONS: None. FINDINGS: LOWER CHEST: See separate report of the CT of the chest. LIVER: There are 3 contiguous small cystic lesions in the dome of the liver, unchanged. No hepatic m ass is seen. SPLEEN: Normal size. No focal lesions. PANCREAS: No masses. No significant calcifications. No adjacent inflammation or peripancreatic fluid collections. Pancreatic duct not dilated. GALLBLADDER: No identified stones by CT criteria. No inflammatory changes to suggest cholecystitis. ADRENAL GLANDS: No significant masses or asymmetry. RIGHT KIDNEY AND URETER: No solid masses. No significant calcifications. No hydronephrosis or hyd roureter. LEFT KIDNEY AND URETER: No solid masses. No significant calcifications. No hydronephrosis or hydr oureter. AORTA AND VESSELS: No aneurysm. No dissection. Renal arteries, SMA, celiac without stenosis. RETROPERITONEUM: No retroperitoneal adenopathy, hemorrhage or masses. BOWEL AND PERITONEAL CAVITY: A moderate sigmoid diverticulosis with no acute inflammation. Cannot ex clude a polypoid lesion at the rectosigmoid junction on the left. See images 69 and 68. APPENDIX: Normal. PELVIS: No mass. No free fluid. Normal bladder. ABDOMINAL WALL: No masses. No hernias. BONES: No significant or acute findings. OTHER: No other significant finding. IMPRESSION: Sigmoid diverticulosis. Cannot exclude a polypoid lesion at the rectosigmoid junction. TECHNICAL DOCUMENTATION: JOB ID: [id number] Quality ID # [id number]: Final reports with documentation of one or more dose reduction techniques (e.g., Au tomated exposure control, adjustment of the mA and/or kV according to patient size, use of iterative reconstruction technique) 2010 [employer]- All Rights Reserved Reading location - IP/workstation name: [email or web address]
== END ==
LOC: RAD 07:34
PROVIDERS: ATTEND Internal Medicine
DX: C21.1 Malignant neoplasm of anal canal (principal); K57.30 Diverticulosis of large intestine without perforation or abscess without bleeding
CPT/HCPCS: 71260; 74177; 82565

== ENCOUNTER 2019-05-10 07:04 | Day surgery (SDC) | payer BC ==
[~2019-05-10 07:04] MED LIST changes: -CONTAINER EMPTY IV PRN; -FLUOROURACIL IV PRN; +LACTATED RINGERS 1000 ML IV PRN
[2019-05-10] MEDS ORDERED: PROPOFOL INJ 200 MG/20 ML VIAL IV ONE (07:37)
--- NOTE | 2019-05-10 09:50 | Discharge Summary ---
Discharge Summary (SDC) - Discharge Final Diagnosis: h/o anal cancer, no sign of sigmoid mass, diverticulosis. Date of Surgery: 05/10/19 Discharge Date: 05/10/19 Condition: Stable Forms: ASU Anesthesia D/C Instruction, Discharge POC-Surgical Service Treatment or Instructions: Discharge home. Diet as tolerated. Activity: Nonstrenuous. Follow-up with me in 2 weeks. Referrals: LARA DAVID MD [ACTIVE STAFF] - 05/24/19 1:15 pm Discharge Diet: As Tolerated Respiratory Treatments at Home: Deep Breathing/Coughing, Incentive Spirometer Discharge Activity: Balance Activity w/Rest Home Care Assistance: None Needed Report the Following to Your Physician Immediately: Shortness of Breath, Nausea, Vomiting, Increase in Pain, Fever over 101 Degrees, Unusual Bleeding, Redness
--- NOTE | 2019-05-10 10:02 | Operative Report ---
Nonrecallable Operative Report DATE OF SURGERY: 05/10/19 PREOPERATIVE DIAGNOSIS: 1. History of anal cancer. 2. Questionable sigmoid lesion seen on CT scan. POSTOPERATIVE DIAGNOSIS: 1. & 2. the same. 3. No evidence of sigmoid intraluminal masses. 4. Diverticulosis, scattered throughout the colon. 5. Scarring at the anorectal ring, without obvious mass lesion. OPERATION: 1. Colonoscopy to the cecum. 2. Cold biopsy, circumferential at the anorectal ring. SURGEON: LARA DAVID ANESTHESIA: LMAC TISSUE REMOVED OR ALTERED: Cold biopsy at the anorectal ring, multiple COMPLICATIONS: None apparent ESTIMATED BLOOD LOSS: Minimal PROCEDURE: Procedure in detail: After informed consent was obtained, the patient was brought to the operating room and laid in the left lateral decubitus position. The endoscope was inserted into the rectum. It was passed up the rectum, sigmoid colon, descending colon, across the transverse colon, down the ascending colon, and into the cecum. The ileocecal valve and appendiceal orifice were identified. The scope was then withdrawn, circumferentially noting the mucosa. The prep was good. The scope was pulled back past the ascending colon, transverse colon, descending colon, sigmoid colon, and into the rectum. No masses, lesions, ulcerations, or bleeding could be noted throughout the colon. There were small, scattered diverticula throughout the length of the colon. There is no sign of active inflammation or diverticulitis. Specifically, there is no mass lesion seen intraluminally within the sigmoid colon (as had been suggested on CT scan). Once the anorectal ring was reached, multiple biopsies were taken at the anorectal ring, circumferentially. There was evidence of mild to moderate stricture in this area, however there was no mass lesion. The scope was then at this time removed, and the procedure was concluded. All sponge, instrument, and needle counts were correct x2. Condition: Stable.
[2019-05-10 13:45] VITALS: BP 136/76
== END 2019-05-10 11:00 | disposition home or self-care (01) ==
LOC: OROUT 07:04
PROVIDERS: ATTEND Surgery
DX: C21.0 Malignant neoplasm of anus, unspecified (principal); K63.5 Polyp of colon; K57.30 Diverticulosis of large intestine without perforation or abscess without bleeding; I10 Essential (primary) hypertension; F17.210 Nicotine dependence, cigarettes, uncomplicated; Z79.899 Other long term (current) drug therapy
CPT/HCPCS: 45380; 81025; 88305 ×2; 00811; J2704; 811

== ENCOUNTER → 2019-07-19 | Outpatient (CLI) | payer BC ==
--- NOTE | 2019-07-19 09:26 | RADIOLOGY REPORT (SQ) ---
EXAM DESCRIPTION: CT CHEST WITH; CT ABD/PELVIS WITH IV ORAL COMPLETED DATE/TIME: 07/19/2019 9:00 am REASON FOR STUDY: MALIGNANT NEOPLASM OF ANAL CANAL C21.1 MALIGNANT NEOPLASM OF ANAL CANAL CONTRAST TYPE AND DOSE: contrast/concentration: Isovue 350.00 mg/ml; Total Contrast Delivered: 77.0 ml; Total Saline Delivered: 67.0 ml RENAL FUNCTION: BUN 10, creatinine 0.7 COMPARISON: None. TECHNIQUE: CT scan of the chest performed using helical scanning technique with dynamic intravenous contrast injection. Images reviewed with lung, soft tissue and bone windows. Reconstructed coronal a nd sagittal MPR images reviewed. All images stored on PACS. All CT scanners at this facility use dose modulation, iterative reconstruction, and/or weight based d osing when appropriate to reduce radiation dose to as low as reasonably achievable (ALARA). [facility]: Dose Right [facility]: CareDose [facility]: Dose Right [facility]: Teradose 4D [facility]: CommonKey RADIATION DOSE: CT Rad equipment meets quality standard of care and radiation dose reduction techniq ues were employed. CTDIvol: 4.7 - 5.8 mGy. DLP: 847 mGy-cm.. LIMITATIONS: None. FINDINGS: AXILLAE: No adenopathy. CHEST WALL: No masses. No subcutaneous air. LUNGS: No nodules or masses. No pneumothorax. No infiltrates. PLEURA: No effusions. No calcifications. THYROID: No masses or significant asymmetry. HILAR AND MEDIASTINAL STRUCTURES: No identified masses or abnormal nodes. AORTA AND GREAT VESSELS: No aneurysm. No dissection. PULMONARY ARTERIES: No identified pulmonary emboli. Study not optimized for the pulmonary arteries. HEART: No pericardial effusion. HARDWARE AND LIFELINES: None. BONES: No significant finding. OTHER: No other significant finding. IMPRESSION: No evidence of metastatic disease in the chest. COMPARISON: None. RADIATION DOSE: CT Rad equipment meets quality standard of care and radiation dose reduction techniq ues were employed. CTDIvol: 4.7 - 5.8 mGy. DLP: 847 mGy-cm.mGy. TECHNIQUE: CT scan of the abdomen and pelvis performed with intravenous and oral contrast using nancy jo scanning technique with dynamic intravenous contrast injection. Images reviewed with lung, soft tissue and bone windows. Reconstructed coronal and sagittal MPR images reviewed. Delayed images for evaluation of the urinary system also acquired and evaluated. All images stored on PACS. All CT scanners at this facility use dose modulation, iterative reconstruction, and/or weight based d osing when appropriate to reduce radiation dose to as low as reasonably achievable (ALARA). [facility]: Dose Right [facility]: SureCare [facility]: Dose Right [facility]: Teradose 4D [facility]: CommonKey FINDINGS: LIVER: The liver is stable in appearance with several small hypoattenuating lesions most c onsistent with cysts. SPLEEN: Normal size. No focal lesions. PANCREAS: No masses. No significant calcifications. No adjacent inflammation or peripancreatic flui d collections. Pancreatic duct not dilated. GALLBLADDER: No identified stones by CT criteria. No inflammatory changes to suggest cholecystitis. ADRENAL GLANDS: No significant masses or asymmetry. RIGHT KIDNEY AND URETER: No solid masses. No significant calcification. No hydronephrosis or hydroure ter. LEFT KIDNEY AND URETER: No solid masses. No significant calcification. No hydronephrosis or hydrouret er. AORTA AND VESSELS: No aneurysm. No dissection. Renal arteries, SMA, celiac without stenosis. RETROPERITONEUM: No retroperitoneal adenopathy, hemorrhage or masses. LARGE AND SMALL BOWEL: Mild thickening of the sigmoid colon is again noted and stable from prior exam s. No focal mass. No surrounding inflammation. No evidence of bowel obstruction. APPENDIX: Normal. ABDOMINAL WALL: No hernia or masses. PERITONEAL CAVITY: No free air. No free fluid. No peritoneal implants or masses. PELVIS: No mass or free fluid. Normal bladder. BONES: No significant or acute findings. OTHER: No other significant finding. IMPRESSION: Thickening of sigmoid colonic wall grossly stable from prior examination. No surroundin g inflammation. No other significant findings. TECHNICAL DOCUMENTATION: JOB ID: [id number] Quality ID # [id number]: Final reports with documentation of one or more dose reduction techniques (e.g., Au tomated exposure control, adjustment of the mA and/or kV according to patient size, use of iterative reconstruction technique) 2010 [employer]- All Rights Reserved Reading location - IP/workstation name: [email or web address]
== END ==
LOC: RAD 08:21
PROVIDERS: ATTEND Physician Assistant Medical
DX: C21.1 Malignant neoplasm of anal canal (principal)
CPT/HCPCS: 71260; 74177

== ENCOUNTER → 2020-07-25 | Outpatient (CLI) | payer BC, OTHER ==
--- NOTE | 2020-07-25 11:57 | RADIOLOGY REPORT (SQ) ---
EXAM DESCRIPTION: CT CHEST WITH IMAGES COMPLETED DATE/TIME: 07/25/2020 10:08 am REASON FOR STUDY: C21.1 MALIGNANT NEOPLASM OF ANAL CANAL C21.1 MALIGNANT NEOPLASM OF ANAL CANAL COMPARISON: 07/19/2019 TECHNIQUE: CT scan of the chest performed using helical scanning technique with dynamic intravenous contrast injection. Images reviewed with lung, soft tissue and bone windows. Reconstructed coronal and sagittal MPR and MIP images reviewed. All images stored on PACS. All CT scanners at this facility use dose modulation, iterative reconstruction, and/or weight based d osing when appropriate to reduce radiation dose to as low as reasonably achievable (ALARA). [facility]: Dose Right [facility]: CareDose [facility]: Dose Right [facility]: Teradose 4D [facility]: [employer] CONTRAST TYPE AND DOSE: 80 mL Omnipaque 350- low osmolar. RENAL FUNCTION: Creatinine 0.7 RADIATION DOSE: CT Rad equipment meets quality standard of care and radiation dose reduction techniq ues were employed. CTDIvol: 4.7 - 6.7 mGy. DLP: 951 mGy-cm. . LIMITATIONS: None. FINDINGS: LUNGS AND PLEURA: No opacities, nodules, masses. No pneumothorax. No effusions. HILAR AND MEDIASTINAL STRUCTURES: No identified masses or abnormal nodes. HEART AND VASCULAR STRUCTURES: No aneurysm or dissection. No central pulmonary emboli. No pericardi al effusion. HARDWARE: None in the chest. UPPER ABDOMEN: See separate report of the CT of the abdomen. THYROID AND OTHER SOFT TISSUES: No masses. No adenopathy. BONES: No significant finding. OTHER: No other significant finding. IMPRESSION: There is no evidence of metastatic disease in the thorax. TECHNICAL DOCUMENTATION: JOB ID: [id number] Quality ID # [id number]: Final reports with documentation of one or more dose reduction techniques (e.g., Au tomated exposure control, adjustment of the mA and/or kV according to patient size, use of iterative reconstruction technique) 2010 [employer]- All Rights Reserved Reading location - IP/workstation name: [email or web address]
--- NOTE | 2020-07-25 12:09 | RADIOLOGY REPORT (SQ) ---
EXAM DESCRIPTION: CT ABD/PELVIS WITH IV ORAL IMAGES COMPLETED DATE/TIME: 07/25/2020 10:08 am REASON FOR STUDY: C21.1 MALIGNANT NEOPLASM OF ANAL CANAL C21.1 MALIGNANT NEOPLASM OF ANAL CANAL COMPARISON: 07/19/2019 TECHNIQUE: CT scan of the abdomen and pelvis performed using helical scanning technique with dynamic intravenous contrast injection. Oral contrast. Images reviewed with lung, soft tissue, and bone win dows. Reconstructed coronal and sagittal MPR images reviewed. Delayed images for evaluation of the ur inary system also acquired. All images stored on PACS. All CT scanners at this facility use dose modulation, iterative reconstruction, and/or weight based d osing when appropriate to reduce radiation dose to as low as reasonably achievable (ALARA). [facility]: Dose Right [facility]: CareDose [facility]: Dose Right [facility]: Teradose 4D [facility]: [employer] CONTRAST TYPE AND DOSE: contrast/concentration: Isovue 350.00 mmol/ml; Total Contrast Delivered: 80. 0 ml; Total Saline Delivered: 45.0 ml RENAL FUNCTION: Creatinine 0.7 RADIATION DOSE: . LIMITATIONS: None. FINDINGS: LOWER CHEST: See separate report of the CT of the chest. LIVER: Once again there are some small low-density lesions in the liver suggestive of cysts. No susp icious solid masses. SPLEEN: Normal size. No focal lesions. PANCREAS: No masses. No significant calcifications. No adjacent inflammation or peripancreatic fluid collections. Pancreatic duct not dilated. GALLBLADDER: No identified stones by CT criteria. No inflammatory changes to suggest cholecystitis. ADRENAL GLANDS: No significant masses or asymmetry. RIGHT KIDNEY AND URETER: No solid masses. No significant calcifications. No hydronephrosis or hyd roureter. LEFT KIDNEY AND URETER: No solid masses. No significant calcifications. No hydronephrosis or hydr oureter. AORTA AND VESSELS: No aneurysm. No dissection. Renal arteries, SMA, celiac without stenosis. RETROPERITONEUM: No retroperitoneal adenopathy, hemorrhage or masses. BOWEL AND PERITONEAL CAVITY: The mild sigmoid wall thickening seen on prior studies is slightly less conspicuous currently. There is mild sigmoid diverticulosis. No acute inflammation. No obvious bow el mass. APPENDIX: Normal. PELVIS: No mass. No free fluid. Normal bladder. ABDOMINAL WALL: No masses. No hernias. BONES: No significant or acute findings. OTHER: No other significant finding. IMPRESSION: There is no evidence of metastatic disease in the abdomen or pelvis. There are some sma ll hepatic lesions most likely cysts. Mild sigmoid diverticulosis. TECHNICAL DOCUMENTATION: JOB ID: [id number] Quality ID # [id number]: Final reports with documentation of one or more dose reduction techniques (e.g., Au tomated exposure control, adjustment of the mA and/or kV according to patient size, use of iterative reconstruction technique) 2010 [employer]- All Rights Reserved Reading location - IP/workstation name: [email or web address]
== END ==
LOC: RAD 09:35
PROVIDERS: ATTEND Physician Assistant Medical
DX: C21.1 Malignant neoplasm of anal canal (principal); K57.30 Diverticulosis of large intestine without perforation or abscess without bleeding
CPT/HCPCS: 71260; 74177; 82565

== ENCOUNTER 2020-09-08 14:18 | Emergency (ER) | payer OTHER ==
[2020-09-08 14:45] VITALS: BP 148/81
--- NOTE | 2020-09-08 15:36 | ER Document Report ---
ED Medical Screen (RME) - General Chief Complaint: Other Stated Complaint: OTHER Time Seen by Provider: 09/08/20 15:29 Primary Care Provider: YAKELIN LORENZO PA-C [Primary Care Provider] - Follow up as needed Notes: Patient presents complaining of inflammation of her anal fistula. 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 Patient states that area has become red and has a darkened center. Patient is concerned area may need to be drained. Patient was on antibiotics about 2 to 3 weeks ago to treat for an infection back here and finish her course of medicine. Patient denies any fever or abdominal pain. I have greeted and performed a rapid initial assessment of this patient. A comprehensive ED assessment and evaluation of the patient, analysis of test results and completion of the medical decision making process will be conducted by additional ED providers. TRAVEL OUTSIDE OF THE [place] IN LAST 30 DAYS: No - Related Data Allergies/Adverse Reactions: No Known Allergies Allergy (Unverified 05/10/19 07:15) Past Medical History - Past Medical History Cardiac Medical History: Reports: Hx Hypertension Denies: Hx Coronary Artery Disease, Hx Heart Attack Pulmonary Medical History: Denies: Hx Asthma, Hx Bronchitis, Hx COPD, Hx Pneumonia Neurological Medical History: Denies: Hx Cerebrovascular Accident, Hx Seizures Renal/ Medical History: Denies: Hx Peritoneal Dialysis Musculoskeltal Medical History: Denies Hx Arthritis - Immunizations Hx Diphtheria, Pertussis, Tetanus Vaccination: Yes Physical Exam - Vital signs Vitals: Temp Pulse Resp BP Pulse Ox 98.6 F 89 18 148/81 H 100 09/08/20 14:43 09/08/20 14:43 09/08/20 14:43 09/08/20 14:43 09/08/20 14:43 - General Notes: Patient provided picture which shows erythema surrounding a raised lesion with a darkened center to buttock Course - Vital Signs Vital signs: Temp Pulse Resp BP Pulse Ox 98.6 F 89 18 148/81 H 100 09/08/20 14:43 09/08/20 14:43 09/08/20 14:43 09/08/20 14:43 09/08/20 14:43 Doctor's Discharge - Discharge Referrals: YAKELIN LORENZO PA-C [Primary Care Provider] - Follow up as needed
[2020-09-08 17:31] LABS: ABSOLUTE LYMPHOCYTES (AUTO) 0.8 10^3/uL (0.5-4.7); ABSOLUTE MONOCYTES (AUTO) 0.3 10^3/uL (0.1-1.4); BASOPHILS % (AUTO) 0.3 % (0-2); MONOCYTES % (AUTO) 5.2 % (3-13); TOTAL CELLS COUNTED % (AUTO) 100 %; WHITE BLOOD COUNT 6.3 10^3/uL (4.0-10.5)
[2020-09-08 17:43] LABS: ABSOLUTE NEUT (AUTO) 5.1 10^3/uL (1.7-8.2); EOSINOPHILS % (AUTO) 0.6 % (0-6); HEMATOCRIT 38.9 % (36.0-47.0); HEMOGLOBIN 13.4 g/dL (12.0-15.5); LYMPHOCYTES % (AUTO) 12.1 % (13-45); MEAN CORPUSCULAR HEMOGLOBIN 32.2 pg (27.0-33.4); MEAN CORPUSCULAR HGB CONC 34.5 g/dL (32.0-36.0); MEAN CORPUSCULAR VOLUME 93 fl (80-97); PLATELET COUNT 355 10^3/uL (150-450); RED BLOOD COUNT 4.16 10^6/uL (3.72-5.28); RED CELL DISTRIBUTION WIDTH 13.2 % (11.5-14.0); SEGMENTED NEUTROPHILS % (AUTO) 81.8 % (42-78)
[2020-09-08 17:51] LABS: ALBUMIN 4.3 g/dL (3.5-5.0); ALKALINE PHOSPHATASE 111 U/L (38-126); ANION GAP 7 (5-19); ASPARTATE AMINO TRANSFERASE 34 U/L (14-36); BILIRUBIN,DIRECT 0.2 mg/dL (0.0-0.4); BILIRUBIN,TOTAL 0.3 mg/dL (0.2-1.3); BLOOD UREA NITROGEN 15 mg/dL (7-20); CALCIUM 10.2 mg/dL (8.4-10.2); CARBON DIOXIDE 29 mmol/L (22-30); CHLORIDE 104 mmol/L (98-107); GLUCOSE 116 mg/dL (75-110); POTASSIUM 4.6 mmol/L (3.6-5.0); TOTAL PROTEIN 7.5 g/dL (6.3-8.2)
== END 2020-09-08 20:18 | disposition left against medical advice (07) ==
LOC: ER 14:18
DX: K60.3 Anal fistula (principal); I10 Essential (primary) hypertension; Z85.048 Personal history of other malignant neoplasm of rectum, rectosigmoid junction, and anus; Z92.21 Personal history of antineoplastic chemotherapy; Z53.29 Procedure and treatment not carried out because of patient's decision for other reasons
CPT/HCPCS: 36415; 80053; 85025; 99281